=== PATIENT | female | born 1960 | race Caucasian/White ===

== ENCOUNTER → 2016-05-11 | Outpatient (CLI) | payer BC ==
[~2016-05-11] MED LIST: ASPI81TA28 PO; CALC600T9 PO; CYAN500T13 PO; CYCL0.052 OPB; ESOM20CA PO; GLC/500 PO; INSPMPNVLG; IRON1TAB6 PO; LEVO175T PO; LOSA1TAB PO; MCRK20 PO; MULT-506 PO; NITR-5 PO; RANI150T3 PO; SIMV40TA2 PO; [UNRECOGNIZED DRUG - CODE] OTL; [UNRECOGNIZED DRUG - CODE] PO; [UNRECOGNIZED DRUG - OTHER] IV.
[2016-05-11 13:04] LABS: URINE APPEARANCE CLEAR (CLEAR); URINE BILIRUBIN NEG (NEG); URINE COLOR YELLOW; URINE NITRITE NEG (NEG); URINE SPECIFIC GRAVITY 1.003 (1.000-1.030); UROBILINOGEN NEG (NEG)
[2016-05-11 13:10] LABS: MANUAL MICROSCOPIC REQUIRED? NO; REVIEW REQ? NO
== END | disposition home or self-care (01) ==
LOC: C.LABSPEC 11:17
PROVIDERS: ATTEND Obstetrics & Gynecology
DX: R31.9 Hematuria, unspecified (principal)

== ENCOUNTER → 2016-05-11 | Outpatient (CLI) | payer BC | END | disposition home or self-care (01) | LOC: C.PAPS 11:59 | PROVIDERS: ATTEND Obstetrics & Gynecology | DX: Z01.419 Encounter for gynecological examination (general) (routine) without abnormal findings (principal) ==

== ENCOUNTER → 2016-08-04 | Outpatient (CLI) | payer BC ==
[~2016-08-04] MED LIST changes: +CLAR500T34 PO; +DEXT30TA7 PO; +METF1TAB53 PO; +PSEU30TA20 PO
[2016-08-04 18:21] LABS: THYROID STIMULATING HORMONE 0.574 uIu/ml (0.300-4.500)
== END | disposition home or self-care (01) ==
LOC: C.LABBFT 15:15
PROVIDERS: ATTEND Physician Assistant Medical
DX: Z11.59 Encounter for screening for other viral diseases (principal); E03.9 Hypothyroidism, unspecified

== ENCOUNTER → 2016-08-14 | Outpatient (CLI) | payer BC ==
[2016-08-14 11:51] LABS: HEMATOCRIT 41.3 % (37-47); MEAN CORPUSCULAR HEMOGLOBIN 28.2 pg (25-34); MEAN CORPUSCULAR HGB CONC 33.2 g/dl (32-36); MEAN PLATELET VOLUME 10.4 fL (7.4-10.4); PLATELET COUNT 223 K/uL (130-400); RED BLOOD COUNT 4.86 M/uL (4.2-5.4); WHITE BLOOD COUNT 6.77 K/uL (4.8-10.8)
[2016-08-14 12:12] LABS: ESTIMATED AVERAGE GLUCOSE 151 mg/dl; HA1C FLAG Normal (Normal)
[2016-08-14 12:36] LABS: ALT/SGPT 44 U/L (12-78); AST/SGOT 14 U/L (15-37); BLOOD UREA NITROGEN 16 mg/dl (7-18); BUN/CREATININE RATIO 16.3 (10-20); CARBON DIOXIDE 28 mmol/L (21-32); CHLORIDE 105 mmol/L (98-107); CREATININE 0.95 mg/dl (0.60-1.20); GLUCOSE 214 mg/dl (70-99); POTASSIUM 4.3 mmol/L (3.5-5.1); SODIUM 141 mmol/L (136-145)
[2016-08-14 12:39] LABS: ALB/GLOB RATIO 1.5 (0.9-2); ALKALINE PHOSPHATASE 84 U/L (45-117); CHOLESTEROL 130 mg/dl (0-200); CHOLESTEROL/HDL RATIO 2.7; HDL CHOLESTEROL 49 mg/dl; LDL CHOLESTEROL CALCULATED 34 mg/dl; TRIGLYCERIDES 233 mg/dl (0-150); VERY LOW DENSITY LIPOPROT CALC 47 mg/dl
== END | disposition home or self-care (01) ==
LOC: C.LABBFT 08:13
PROVIDERS: ATTEND Internal Medicine
DX: E78.00 Pure hypercholesterolemia, unspecified (principal); I10 Essential (primary) hypertension; E11.21 Type 2 diabetes mellitus with diabetic nephropathy

== ENCOUNTER → 2016-12-23 | Outpatient (CLI) | payer BC ==
[~2016-12-23] MED LIST changes: -CLAR500T34 PO; -DEXT30TA7 PO; -METF1TAB53 PO; -NITR-5 PO; -PSEU30TA20 PO; -[UNRECOGNIZED DRUG - CODE] OTL
--- NOTE | 2016-12-24 12:45 | MAMMOGRAPHY REPORT ---
BILATERAL DIGITAL SCREENING MAMMOGRAM TOMOSYNTHESIS WITH CAD: 12/23/2016 CLINICAL HISTORY: Routine screening. TECHNIQUE: Breast tomosynthesis in addition to standard 2D mammography was performed. Current study was also evaluated with a Computer Aided Detection (CAD) system. COMPARISON: Comparison is made to exams dated: 12/20/2015 mammogram, 12/17/2014 mammogram, 12/14/2013 ma mmogram, 12/12/2012 mammogram, 12/10/2011 mammogram, and 12/08/2010 mammogram - [facility] nter. BREAST COMPOSITION: There are scattered areas of fibroglandular density in both breasts. FINDINGS: No suspicious masses, calcifications, or areas of architectural distortion are noted in ei ther breast. There has been no significant interval change compared to prior exams. A port catheter overlies the left pectoralis muscle. IMPRESSION: ACR BI-RADS CATEGORY 1: NEGATIVE There is no mammographic evidence of malignancy. A 1 year screening mammogram is recommended. The pa tient will receive written notification of the results. Approximately 10% of breast cancers are not detected with mammography. A negative mammographic report should not delay biopsy if a clinically suggestive mass is present. Marilia Chandler M.D. /:12/24/2016 07:27:12 [employer]: Lety WHITMORE(R)(M), [facility] letter sent: Normal 1/2 BI-RADS Code: ACR BI-RADS Category 1: Negative
== END | disposition home or self-care (01) ==
LOC: C.MAMM 17:00
PROVIDERS: ATTEND Obstetrics & Gynecology
DX: Z12.31 Encounter for screening mammogram for malignant neoplasm of breast (principal)

== ENCOUNTER → 2017-02-08 | Outpatient (CLI) | payer BC | END | disposition home or self-care (01) | LOC: C.LABSPEC 17:31 | PROVIDERS: ATTEND Podiatrist Primary Podiatric Medicine | DX: B35.1 Tinea unguium (principal) ==

== ENCOUNTER → 2017-03-15 | Outpatient (CLI) | payer BC ==
[~2017-03-15] MED LIST changes: +DEXT30TA7 PO; +METF1TAB53 PO; +PSEU30TA20 PO
--- NOTE | 2017-03-15 12:34 | DIAGNOSTIC IMAGING REPORT ---
CHEST 2 VIEWS ROUTINE CLINICAL HISTORY: COUGH dyspnea COMPARISON STUDY: 02/21/2016 FINDINGS: Mild stable cardiomegaly. Central catheter ends. Cava. Lungs are clear. Diaphragms are smooth. IMPRESSION: No acute process. The above report was generated using voice recognition software. It may contain grammatical, syntax or spelling errors. Electronically signed by: Robert Bunn M.D. 03/15/2017 12:33 PM Dictated Date/Time: 03/15/2017 12:32 PM
== END | disposition home or self-care (01) ==
LOC: C.RAD1850 12:20
PROVIDERS: ATTEND Physician Assistant Medical
DX: R05 Cough (principal)

== ENCOUNTER → 2017-05-14 | Outpatient (CLI) | payer BC ==
[~2017-05-14] MED LIST changes: -CALC600T9 PO; +CLAR500T38 PO; -CYAN500T13 PO; -DEXT30TA7 PO; -IRON1TAB6 PO; -MULT-506 PO; -PSEU30TA20 PO
== END | disposition home or self-care (01) ==
LOC: C.PAPS 09:39
PROVIDERS: ATTEND Obstetrics & Gynecology
DX: Z01.419 Encounter for gynecological examination (general) (routine) without abnormal findings (principal)

== ENCOUNTER → 2017-09-03 | Outpatient (CLI) | payer BC ==
[~2017-09-03] MED LIST changes: +MONT1TAB3 PO
--- NOTE | 2017-09-03 16:15 | DIAGNOSTIC IMAGING REPORT ---
FUSION CT SINUSES W/O CLINICAL HISTORY: ALLERGIC RHINITIS chronic sinusitis COMPARISON STUDY: No previous studies for comparison. FINDINGS: Helical images were acquired in the transverse plane. A dose reduction technique was utilized according to the principles of ALARA. Sagittal and coronal reformatted images were reviewed. No orbital masses are visualized. There is no evidence of hydrocephalus. There are trace mastoid effusions. The middle ear cavities are well aerated. There is mucosal thickening within the sphenoid sinus. Multiple ethmoid air cells are opacified. There is partial opacification the left frontal sinus. There is near complete opacification of both maxillary sinuses. There is nasal septal deviation to the left. The ostiomeatal infundibular portions of both ostiomeatal units are occluded by soft tissue. The ethmoidal notches are unprotected. The olfactory grooves measure 9 mm bilaterally. The sphenoid recesses appear patent. The frontal recesses appear occluded. IMPRESSION: 1. Pansinus disease 2. Both ostiomeatal units are occluded by soft tissue. Electronically signed by: Guille Gayle M.D. 09/03/2017 4:13 PM Dictated Date/Time: 09/03/2017 4:09 PM
== END | disposition home or self-care (01) ==
LOC: C.CTS 15:54
PROVIDERS: ATTEND Physician Assistant
DX: J30.9 Allergic rhinitis, unspecified (principal)